=== PATIENT | female | born 1990 | race Caucasian/White ===

== ENCOUNTER → 2017-04-21 | Outpatient (CLI) | payer BC ==
--- NOTE | 2017-04-22 07:10 | US ---
EXAMINATION TYPE: US pelvic complete DATE OF EXAM: 04/21/2017 COMPARISON: NONE CLINICAL HISTORY: N93.8 Other specified abnormal uterine and vaginal. Patient stated has irregular an d heavy menses x 6 months; on medication for thyroid TECHNIQUE: Transabdominal (TA) Date of LMP: 04/11/2017 EXAM MEASUREMENTS: Uterus: 6.9 x 4.0 x 2.6 cm Endometrial Stripe: 0.6 cm Right Ovary: 3.3 x 1.6 x 2.0 cm Left Ovary: 2.3 x 2.3 x 1.7 cm 1. Uterus: Anteverted 2. Endometrium: limitedly seen and was better seen in transverse view, thus thickness is wnl for Day 11LMP 3. Right Ovary: small follicles are seen 4. Left Ovary: small follicles are noted 5. Bilateral Adnexa: wnl 6. Posterior cul-de-sac: wnl IMPRESSION: No significant abnormality identified.
== END | disposition home or self-care (01) ==
LOC: RADUSWWP 16:09
PROVIDERS: ATTEND Family Medicine
DX: N93.8 Other specified abnormal uterine and vaginal bleeding (principal)
CPT/HCPCS: 76856